=== PATIENT | female | born 1945 | race Caucasian/White ===

== ENCOUNTER → 2017-10-11 | Outpatient (CLI) | payer BC, MEDICARE, OTHER ==
[~2017-10-11] MED LIST: ASCO-188 PO; ATOR10TA65 PO; AZO YEAST PO; CALC-83; CHOL100058 PO; CLO75 PO; CRAN200C5 PO; CYAN25004; DEN60I SUBQ; DICL100G39 TP; DOCU-202 PO; DOXY150T6 PO; ESTR0.62 PO; ESTR2TAB PO; EZET1TAB53 PO; GLUC-255 PO; IBAN150T6 PO; IBAN2.5T2 PO; LACT1CAP74 PO; LISI-357 PO; LOSA25TA50 PO; METH1TAB46 PO; METH1TAB58 PO; METO-1 PO; MULT1CAP59 PO; OMEG-96 PO; POLY17PO25 PO; PRAM0.2524 PO; PRAS25CA7 PO; SIM10 PO; TRI05T TP; VITA-131 PO; ZINC50TA43 PO
== END ==
LOC: LAB 12:13
PROVIDERS: ATTEND Internal Medicine Endocrinology, Diabetes & Metabolism
DX: E05.90 Thyrotoxicosis, unspecified without thyrotoxic crisis or storm (principal)
CPT/HCPCS: 36415; 84439; 84443; 84481

== ENCOUNTER → 2017-10-22 | Outpatient (CLI) | payer BC, MEDICARE, OTHER ==
[~2017-10-22] MED LIST changes: +DENOSUMAB 60 MG/1 ML SYR SUBQ ONE
[2017-10-22 12:59] VITALS: BP 148/70
== END ==
LOC: SPU 08:08
PROVIDERS: ATTEND Nurse Practitioner Family
DX: M81.0 Age-related osteoporosis without current pathological fracture (principal)
CPT/HCPCS: 96372; J0897

== ENCOUNTER → 2017-10-26 | Outpatient (CLI) | payer BC, MEDICARE, OTHER ==
[~2017-10-26] MED LIST changes: -DENOSUMAB 60 MG/1 ML SYR SUBQ ONE
[2017-10-26 09:43] LABS: PLATELET COUNT, AUTOMATED 193 K/uL (150-450)
== END ==
LOC: LAB 09:01
PROVIDERS: ATTEND Nurse Practitioner Family
DX: I70.0 Atherosclerosis of aorta (principal); E55.9 Vitamin D deficiency, unspecified; D51.0 Vitamin B12 deficiency anemia due to intrinsic factor deficiency; R76.8 Other specified abnormal immunological findings in serum
CPT/HCPCS: 36415; 82040; 82247; 82306; 82310; 82374; 82435; 82465; 82565; 82607; 82947; 83718; 84075; 84132; 84155; 84295; 84450; 84460; 84478; 84520; 85025; 86803

== ENCOUNTER → 2017-11-01 | Outpatient (CLI) | payer BC, MEDICARE, OTHER ==
--- NOTE | 2017-11-01 13:30 | RADIOLOGY IMAGING REPORT ---
[place] [facility] [place] NAME: Tita Loera : 1945 MR: [id number] V: [id number] EXAM DATE: ORDERING PHYSICIAN: DAISHA RON TECHNOLOGIST: Location: [facility] Patient: Tita Loera : 1945 Visit/Account:[id number] Date of Sevice: 11/01/2017 BONE MINERAL DENSITY Additional Pertinent history: Osteoporosis screening COMPARISON STUDIES: 07/03/2015 FINDINGS: LUMBAR SPINE: The bone mineral density (BMD) measured from L1-L4 correlates with a Z-score of 1.4 and a T-score of -0.6 which is normal bone mineral density as defined by the World Health Organization. The correspond ing risk of fracture in the lumbar spine is increased 1-2 times compared with a young adult reference population. This value has increased by 11.2% since the prior study. More than 5% change is consider ed significant. HIP: Bone mineral density (BMD) measured in the left femoral neck correlates with a Z-score of 0.4 and a T-score of -1.5 which is osteopenia as defined by the World Health Organization. The corresponding ri sk of fracture in the hip is increased 3 times compared with a young adult reference population. Tota l hip value has increased by 4.7% since the prior study. More than 5% change is considered significan t. Total hip bone mineral density is normal with T score = -0.9. Bone mineral density (BMD) measured in the left femoral neck region measures 0.83 g/cm2. IMPRESSION: 1. Lumbar spine: Normal bone mineral density. Significant increase in bone mineral density. 2. Left hip: Osteopenia at the femoral neck. Total hip bone mineral density is normal.. Total hip va lue has shown no significant change. Left femoral neck: bone mineral density is 0.83 g/cm2 FRAX WHO Fracture Risk Assessment Tool link: http://www.cary.ac.uk/FRAX/index.jsp The next DEXA scan of this patient should include the following sites: L1 - L4 and left hip PLEASE NOTE: 1. The World Health Organization defines low BMD as follows: T-score Normal > -1 Osteopenia -1 to -2.5 Osteoporosis < -2.5 without fractures Established osteoporosis < -2.5 with fractures 2. In general, you may wish to consider: Diagnosis Treatment Follow-up DEXA Normal BMD Prevention 2-3 years Osteopenia Prevention/therapy 1-2 years Osteoporosis Therapy Yearly 3. Fracture risk estimated from the T-score is more accurate for vertebral fractures (often spontaneo us) than for hip fractures. Report Dictated By: Rashid Dangelo MD at 11/01/2017 1:24 PM Report E-Signed By: Rashid Dangelo MD at 11/01/2017 1:27 PM SHANICEN:TORRES
== END ==
LOC: RAD 07:21
PROVIDERS: ATTEND Nurse Practitioner Family
DX: M85.88 Other specified disorders of bone density and structure, other site (principal)
CPT/HCPCS: 77080

== ENCOUNTER → 2017-11-11 | Outpatient (CLI) | payer BC, MEDICARE, OTHER | LOC: LAB 11:15 | PROVIDERS: ATTEND Internal Medicine Endocrinology, Diabetes & Metabolism | DX: E05.90 Thyrotoxicosis, unspecified without thyrotoxic crisis or storm (principal) | CPT/HCPCS: 36415; 84439; 84443; 84481 ==

== ENCOUNTER → 2017-12-13 | Outpatient (REF) | payer BC, MEDICARE, OTHER | LOC: ZZSENDIN 08:25 | PROVIDERS: ATTEND Urology | DX: N39.0 Urinary tract infection, site not specified (principal) | CPT/HCPCS: 81001; 87088 ==

== ENCOUNTER → 2017-12-24 | Outpatient (CLI) | payer BC, MEDICARE, OTHER ==
--- NOTE | 2017-12-24 14:01 | RADIOLOGY IMAGING REPORT ---
FACILITY: [facility] PATIENT NAME: JUDIT MALCOLM : [id number] MR: [id number] V: [id number] EXAM DATE: ORDERING PHYSICIAN: DAISHA RON TECHNOLOGIST: Lindy Purdy PROCEDURE:BILATERAL DIGITAL SCREENING MAMMOGRAM WITH CAD ASSISTED INTERPRETATION & 3D TOMOSYNTHESIS COMPARISON:Prior mammograms 12/22/16, 12/07/16, 12/06/15, 12/04/14, 11/29/13, 11/28/12. INDICATIONS:screening FINDINGS: Moderately heterogeneous fibroglandular tissue is seen throughout the breasts. The parenchymal pattern has remained stable allowing for difference in mammographic technique & patient positioning. There is no evidence of malignant appearing mass, malignant appearing calcifications or other secondary sign of malignancy in either breast. DIAGNOSTIC CATEGORY 1--NEGATIVE. RECOMMENDATIONS: ROUTINE MAMMOGRAM AND CLINICAL EVALUATION. IMPRESSION: BIRADS 1: Negative No significant abnormality is seen. Dictated by: Vicenta Hernandez M.D. on 12/24/2017 at 11:57 Transcribed by: YESENIA on 12/24/2017 at 13:04 Approved by: Vicenta Hernandez M.D. on 12/24/2017 at 14:00 [facility]
== END ==
LOC: MAMO 09:57
PROVIDERS: ATTEND Nurse Practitioner Family
DX: Z12.31 Encounter for screening mammogram for malignant neoplasm of breast (principal)
CPT/HCPCS: 77063; 77067

== ENCOUNTER → 2017-12-30 | Outpatient (CLI) | payer BC, MEDICARE, OTHER | LOC: LAB 08:50 | PROVIDERS: ATTEND Internal Medicine Endocrinology, Diabetes & Metabolism | DX: E05.20 Thyrotoxicosis with toxic multinodular goiter without thyrotoxic crisis or storm (principal); E05.90 Thyrotoxicosis, unspecified without thyrotoxic crisis or storm | CPT/HCPCS: 36415; 84439; 84443; 84481 ==

== ENCOUNTER → 2018-01-10 | Outpatient (CLI) | payer BC, MEDICARE, OTHER | LOC: LAB 07:12 | PROVIDERS: ATTEND Internal Medicine Endocrinology, Diabetes & Metabolism | DX: R53.82 Chronic fatigue, unspecified (principal) | CPT/HCPCS: 36415; 82533 ==

== ENCOUNTER → 2018-01-13 | Outpatient (CLI) | payer BC, MEDICARE, OTHER ==
[2018-01-13 10:21] LABS: PLATELET COUNT, AUTOMATED 194 K/uL (150-450)
== END ==
LOC: LAB 10:06
PROVIDERS: ATTEND Nurse Practitioner Family
DX: E87.1 Hypo-osmolality and hyponatremia (principal); R53.81 Other malaise
CPT/HCPCS: 36415; 82040; 82247; 82310; 82374; 82435; 82565; 82947; 84075; 84132; 84155; 84295; 84450; 84460; 84520; 85025

== ENCOUNTER → 2018-04-13 | Outpatient (CLI) | payer BC, MEDICARE, OTHER | LOC: RESP 19:57 | PROVIDERS: ATTEND Nurse Practitioner Family | DX: G47.33 Obstructive sleep apnea (adult) (pediatric) (principal); G47.36 Sleep related hypoventilation in conditions classified elsewhere ==

== ENCOUNTER → 2018-04-25 | Outpatient (CLI) | payer BC, MEDICARE, OTHER ==
[~2018-04-25] MED LIST changes: +DENOSUMAB 60 MG/1 ML SYR SUBQ ONE
== END ==
LOC: SPU 09:09
PROVIDERS: ATTEND Nurse Practitioner Family
DX: Z02.9 Encounter for administrative examinations, unspecified (principal)

== ENCOUNTER → 2018-04-26 | Outpatient (CLI) | payer BC, MEDICARE, OTHER ==
[2018-04-26 09:19] VITALS: BP 136/71
== END ==
LOC: SPU 08:02
PROVIDERS: ATTEND Nurse Practitioner Family
DX: M81.0 Age-related osteoporosis without current pathological fracture (principal)
CPT/HCPCS: 96372; J0897

== ENCOUNTER → 2018-05-18 | Outpatient (CLI) | payer BC, MEDICARE, OTHER ==
[~2018-05-18] MED LIST changes: -DENOSUMAB 60 MG/1 ML SYR SUBQ ONE
[2018-05-18 09:30] LABS: PLATELET COUNT, AUTOMATED 231 K/uL (150-450)
[2018-05-18 10:49] LABS: LDL CHOLESTEROL 88 mg/dl
== END ==
LOC: LAB 09:05
PROVIDERS: ATTEND Nurse Practitioner Family
DX: E03.9 Hypothyroidism, unspecified (principal); I10 Essential (primary) hypertension; E78.00 Pure hypercholesterolemia, unspecified; R53.81 Other malaise; G47.33 Obstructive sleep apnea (adult) (pediatric); E55.9 Vitamin D deficiency, unspecified; D51.0 Vitamin B12 deficiency anemia due to intrinsic factor deficiency
CPT/HCPCS: 36415; 82040; 82247; 82306; 82310; 82374; 82435; 82465; 82565; 82607; 82947; 83718; 84075; 84132; 84155; 84295; 84436; 84443; 84450; 84460; 84478; 84479; 84520; 85025; 85651; 86140

== ENCOUNTER → 2018-05-24 | Outpatient (CLI) | payer BC, MEDICARE, OTHER ==
--- NOTE | 2018-05-24 12:24 | EKG ---
FACILITY: [facility] PATIENT NAME: JUDIT MALCOLM : [id number] MR: [id number] V: [id number] EXAM DATE: ORDERING PHYSICIAN: DAISHA RON TECHNOLOGIST: ANDRE Test Reason : BETY HISTORY Blood Pressure : / mmHG Vent. Rate : 053 BPM Atrial Rate : 053 BPM P-R Int : 188 ms QRS Dur : 086 ms QT Int : 470 ms P-R-T Axes : 025 014 031 degrees QTc Int : 441 ms Sinus bradycardia Otherwise normal ECG No previous ECGs available Confirmed by Timmy Bentley ([id number]) on 05/24/2018 4:55:14 PM Referred By: PRIETO Confirmed By:Timmy Gresham
== END ==
LOC: RESP 12:00
PROVIDERS: ATTEND Nurse Practitioner Family
DX: R00.1 Bradycardia, unspecified (principal)
CPT/HCPCS: 93005

== ENCOUNTER → 2018-07-18 | Outpatient (CLI) | payer BC, MEDICARE, OTHER ==
[~2018-07-18] MED LIST changes: -LOSA25TA50 PO; +LOSA25TA52 PO
[2018-07-18 10:06] LABS: PLATELET COUNT, AUTOMATED 191 K/uL (150-450)
== END ==
LOC: LAB 09:42
PROVIDERS: ATTEND Nurse Practitioner Family
DX: R07.89 Other chest pain (principal); E03.8 Other specified hypothyroidism; E78.00 Pure hypercholesterolemia, unspecified; R53.81 Other malaise; R94.5 Abnormal results of liver function studies; D51.0 Vitamin B12 deficiency anemia due to intrinsic factor deficiency; E04.1 Nontoxic single thyroid nodule
CPT/HCPCS: 36415; 82040; 82247; 82310; 82374; 82435; 82565; 82746; 82947; 84075; 84132; 84155; 84295; 84443; 84450; 84460; 84520; 85025

== ENCOUNTER → 2018-10-04 | Outpatient (CLI) | payer BC, MEDICARE, OTHER ==
[~2018-10-04] MED LIST changes: -LOSA25TA52 PO; +LOSA25TA57 PO
== END ==
LOC: LAB 16:03
PROVIDERS: ATTEND Nurse Practitioner Family
DX: N95.1 Menopausal and female climacteric states (principal); E89.41 Symptomatic postprocedural ovarian failure; M81.0 Age-related osteoporosis without current pathological fracture; N30.20 Other chronic cystitis without hematuria
CPT/HCPCS: 36415; 82670; 83001; 84403

== ENCOUNTER 2018-10-25 19:21 | Inpatient (IN) | payer BC, MEDICARE, OTHER ==
[~2018-10-25 19:21] MED LIST changes: -OMEP-137 PO; -PANT40TA65 PO; -SUCR1TAB85 PO
--- NOTE | 2018-10-25 19:32 | ER Report ---
History and Physical Time Seen By MD: 19:32 HPI/ROS CHIEF COMPLAINT: Anemia, black stool HISTORY OF PRESENT ILLNESS: 73-year-old female patient presents to emergency room with complaint of anemia and black stool. Patient states that she's been having black stool for the last 3 days. She did go to see her primary care provider today who collected a stool sample. She is in that event to [facility]. They did send her over to the hospital to get a CBC done. Patient had critical results of which were sent to Dr. Sy, who contacted the patient and recommended she come in here for evaluation. Patient states that she's not having any pain, she denies having any nausea or vomiting. Patient states that she typically has one bowel movement today, however today she has had more. REVIEW OF SYSTEMS: Respiratory: No cough, no dyspnea. Cardiovascular: No chest pain, no palpitations. Gastrointestinal: As noted above. Musculoskeletal: No back pain. Allergies: Coded Allergies: clonidine (Verified Allergy, Mild, STROBE LIGHTS, 03/18/11) Home Meds Reported Medications Sucralfate (CARAFATE) 1 Gm Tablet, 1 GM PO TID 10/25/18 Omeprazole (OMEPRAZOLE) 20 Mg Tablet.dr, 40 MG PO QDAY, TAB 10/25/18 Denosumab (PROLIA) 60 Mg/1 Ml Injs, 60 MG SUBQ [id number] 10/30/15 Calcium Citrate/Vitamin D3 (Calcium Citrate +Vit D3 Tablet) 200 Mg Calcium-250 Unit Tablet 10/30/15 Zinc Gluconate (ZINC) 50 Mg Tablet, 50 MG PO QDAY 08/02/15 Cranberry Extract (CRANBERRY) 200 Mg Capsule, 200 MG PO BID, CAPSULE 08/02/15 Cholecalciferol (Vitamin D3) (VITAMIN D) 1,000 Unit Capsule, 1000 UNIT PO QDAY, CAPSULE 08/02/15 Ascorbic Acid (VITAMIN C) 500 Mg Tab.chew, 500 MG PO QDAY, TAB.CHEW 08/02/15 Cyanocobalamin (Vitamin B-12) (Vitamin B12) Unknown Strength Tablet 08/02/15 [place]-3 Fatty Acids/Fish Oil (OMEGA 3 1,000 MG SOFTGEL) 1 Each Capsule, 1 EACH PO QDAY, CAPSULE 08/02/15 Polyethylene Glycol 3350 (MIRALAX) 17 Gm Powd.pack, 17 GM PO QDAY 08/02/15 Docusate Sodium (DOCUSATE SODIUM) 100 Mg Capsule, 2 TAB PO BID, CAPSULE 08/02/15 Diclofenac Sodium 1% Gel (VOLTAREN 1% GEL) 100 Gm Gel..gram., 1 TIARA TP PRN 08/02/15 Triamcinolone Acet 0.5% (TRIAMCINOLONE ACETONIDE 0.5%) 15 Gm Cr, 15 GM TP, TUBE 08/02/15 Methenamine Hippurate (METHENAMINE HIPPURATE) 1 Gm Tablet, 1 GM PO BID 08/02/15 Atorvastatin Calcium (ATORVASTATIN CALCIUM) 10 Mg Tablet, 1 TAB PO QDAY, TAB 08/02/15 Losartan Potassium (LOSARTAN POTASSIUM) 25 Mg Tablet, 25 MG PO QDAY 08/02/15 Multivitamins (Multivitamin) 1 Each Capsule, 1 EACH PO QDAY, 0 Refills 03/18/11 Pramipexole Di-Hcl (Mirapex) 0.25 Mg Tablet, 1.5 MG PO QDAY, 0 Refills 03/18/11 Clopidogrel Bisulfate (Plavix) 75 Mg Tab, 75 MG PO QDAY, 0 Refills 03/18/11 Metoprolol Tartrate (Lopressor) 50 Mg Tablet, 25 MG PO QDAY, 0 Refills 03/18/11 Discontinued Reported Medications Glucosamine/Chondroitin Sulf A (GLUCOSAMINE CHONDROITIN CAP) 1 Each Capsule, 1 EACH PO QDAY, CAPSULE 08/02/15 Prasterone (Dhea) (DHEA) 25 Mg Capsule, 25 MG PO QDAY, CAPSULE 08/02/15 [Azo Yeast] No Conflict Check, 1 TAB PO QDAY 08/02/15 Lactobacillus Rhamnosus Gg (CULTURELLE) 1 Each Capsule, 1 EACH PO QDAY, CAPSULE 08/02/15 Estrogens, Conjugated 0.625 Mg Tab (PREMARIN 0.625 MG TAB) 0.625 Mg Tablet, 0.625 MG PO QDAY 08/02/15 Past Medical/Surgical History Patient has a past medical history of migraines, aneurysm with dissection, hypertension, hyperlipidemia, constipation, frequent UTI, osteopenia. Patient has surgical history of aortic aneurysm repair, hysterectomy, tonsillectomy, surgery for a mediastinitis. Reviewed Nurses Notes: Yes Hx Smoking: No Smoking Status: Never Smoker Hx Substance Use Disorder: No Hx Alcohol Use: No Constitutional Vital Sign - Last 24 Hours 10/25/18 10/25/18 10/25/18 2/5/19 19:33 19:33 19:51 19:56 Temp 99.1 Pulse 92 88 Resp 16 B/P (MAP) 126/60 126/60 (82) 101/53 (69) Pulse Ox 94 96 10/25/18 10/25/18 10/25/18 10/25/18 20:00 20:21 20:30 20:51 Pulse 78 76 B/P (MAP) 97/50 (66) 114/62 (79) Pulse Ox 87 100 10/25/18 10/25/18 21:00 21:05 Pulse 81 B/P (MAP) 127/60 (82) Pulse Ox 100 Physical Exam General Appearance: The patient is alert, has no immediate need for airway protection and no current signs of toxicity. Respiratory: Chest is non tender, lungs are clear to auscultation. Cardiac: regular rate and rhythm Gastrointestinal: Abdomen is soft and non tender, no masses, bowel sounds normal. Musculoskeletal: Neck: Neck is supple and non tender. Extremities have full range of motion and are non tender. Skin: No rashes or lesions. DIFFERENTIAL DIAGNOSIS: After history and physical exam differential diagnosis was considered for GI bleed, anemia, gastritis. Medical Decision Making Data Points Result Diagram: 10/25/181950 Laboratory Hematology Test 10/25/18 19:51 Red Blood Count 2.24 M/uL (4.17-5.56) Mean Corpuscular Volume 104.7 fL (80.0-96.0) Mean Corpuscular Hemoglobin 35.8 pg (26.0-33.0) Mean Corpuscular Hemoglobin Concent 34.2 g/dL (32.0-36.0) Red Cell Distribution Width 13.0 % (11.5-14.5) Mean Platelet Volume 8.3 fL (7.2-11.1) Neutrophils (%) (Auto) 64.1 % (39.4-72.5) Lymphocytes (%) (Auto) 28.5 % (17.6-49.6) Monocytes (%) (Auto) 5.4 % (4.1-12.4) Eosinophils (%) (Auto) 1.5 % (0.4-6.7) Basophils (%) (Auto) 0.5 % (0.3-1.4) Nucleated RBC Relative Count (auto) 0.0 /100WBC Neutrophils # (Auto) 3.5 K/uL (2.0-7.4) Lymphocytes # (Auto) 1.5 K/uL (1.3-3.6) Monocytes # (Auto) 0.3 K/uL (0.3-1.0) Eosinophils # (Auto) 0.1 K/uL (0.0-0.5) Basophils # (Auto) 0.0 K/uL (0.0-0.1) Nucleated RBC Absolute Count (auto) 0.00 K/uL Prothrombin Time 13.3 seconds (12.0-14.4) Prothromb Time International Ratio 1.01 Activated Partial Thromboplast Time 29 seconds (23-35) C-Reactive Protein 0.6 mg/dl (<1.0) Chemistry Test 10/25/18 19:51 White Blood Count 5.4 k/uL (4.5-11.0) Red Blood Count 2.24 M/uL (4.17-5.56) Hemoglobin 8.0 g/dL (12.0-16.0) Hematocrit 23.5 % (34.0-47.0) Mean Corpuscular Volume 104.7 fL (80.0-96.0) Mean Corpuscular Hemoglobin 35.8 pg (26.0-33.0) Mean Corpuscular Hemoglobin Concent 34.2 g/dL (32.0-36.0) Red Cell Distribution Width 13.0 % (11.5-14.5) Platelet Count 181 K/uL (150-450) Mean Platelet Volume 8.3 fL (7.2-11.1) Neutrophils (%) (Auto) 64.1 % (39.4-72.5) Lymphocytes (%) (Auto) 28.5 % (17.6-49.6) Monocytes (%) (Auto) 5.4 % (4.1-12.4) Eosinophils (%) (Auto) 1.5 % (0.4-6.7) Basophils (%) (Auto) 0.5 % (0.3-1.4) Nucleated RBC Relative Count (auto) 0.0 /100WBC Neutrophils # (Auto) 3.5 K/uL (2.0-7.4) Lymphocytes # (Auto) 1.5 K/uL (1.3-3.6) Monocytes # (Auto) 0.3 K/uL (0.3-1.0) Eosinophils # (Auto) 0.1 K/uL (0.0-0.5) Basophils # (Auto) 0.0 K/uL (0.0-0.1) Nucleated RBC Absolute Count (auto) 0.00 K/uL Prothrombin Time 13.3 seconds (12.0-14.4) Prothromb Time International Ratio 1.01 Activated Partial Thromboplast Time 29 seconds (23-35) C-Reactive Protein 0.6 mg/dl (<1.0) Coagulation Test 10/25/18 19:51 Prothrombin Time 13.3 seconds Prothromb Time International Ratio 1.01 Activated Partial Thromboplast Time 29 seconds ED Course/Re-evaluation ED Course Patient was admitted to an exam room, history and physical were obtained. Differential diagnoses were considered. On examination lungs are clear, heart was regular, abdomen soft nontender. A repeat CBC, PT, PTT were done. The PT and PTT were unremarkable. However the repeat CBC showed that her hemoglobin had dropped from 8.5-8. Her hematocrit had dropped from 24.8-23.5. At that time I did call and discuss the case with Dr. Sarah, general surgeon, who agreed to admit the patient for a GI bleed. I discussed with him that I was concerned at how rapidly her H&H had dropped. He was in agreement and recommended that she be put on a clear liquid diet with nothing by mouth after midnight that she's given Carafate diet and started on a Protonix drip. I discussed this with the patient and her who verbalized understanding and agreement with plan. Decision to Disposition Date: Oct 25, 2018 Decision to Disposition Time: 21:00 Depart Departure Latest Vital Signs Vital Signs Date Time Temp Pulse Resp B/P (MAP) Pulse Ox O2 Delivery O2 Flow Rate FiO2 10/25/18 21:05 81 100 10/25/18 21:00 127/60 (82) 10/25/18 19:33 99.1 16 Impression: Primary Impression: GI bleed Additional Impression: Anemia Condition: Condition Unchanged Disposition: Admitted from ER Referrals: DAISHA RON (PCP) Problem Qualifiers Primary Impression: GI bleed GI bleed type/associated pathology: unspecified peptic ulcer Qualified Codes: K27.4 - Chronic or unspecified peptic ulcer, site unspecified, with hemorrhage Additional Impression: Anemia Anemia type: unspecified type Qualified Codes: D64.9 - Anemia, unspecified OZIEL KOEHLER Oct 25, 2018 19:32
[2018-10-25] MEDS ORDERED: NS(*) 0.9% 1000 ML BAG 1,000 ML IV ONE (19:43)
[2018-10-25 20:09] LABS: PLATELET COUNT, AUTOMATED 181 K/uL (150-450)
[2018-10-25] MEDS ORDERED: OMEP-137 PO (20:10)
[2018-10-25] MEDS ORDERED: SUCR1TAB85 PO (20:10)
[2018-10-25 20:15] LABS: INR 1.01
[2018-10-25] MEDS ORDERED: PANTOPRAZOLE SOD(*)40 MG VIAL 80 MG in NS(*) 0.9% 100 ML BAG 100 ML IVPB ONE ×2 (20:45→22:30)
[2018-10-25] MEDS ORDERED: SUCRALFATE 1 GM TAB PO ONE (20:45)
[2018-10-25 21:36] VITALS: BP 156/70
[2018-10-25] MEDS ORDERED: PRAMIPEXOLE DIHYDROCHL 0.25 MG PO SCH (22:20)
[2018-10-25] MEDS ORDERED: NS(*) 0.9% 1000 ML BAG 1,000 ML IV PRN (22:30)
[2018-10-25] MEDS: PANTOPRAZOLE SOD IV SCH (22:56)
[2018-10-25] MEDS: NS IV SCH (22:56)
[2018-10-26] VITALS (11 sets, daily range): BP systolic 106–127; BP diastolic 56–65
[2018-10-26 06:36] LABS: PLATELET COUNT, AUTOMATED 158 K/uL (150-450)
[2018-10-26] MEDS ORDERED: NS(*) 0.9% 1000 ML BAG 1,000 ML IV PRN (07:09)
--- NOTE | 2018-10-26 07:15 | Gen Surgery History & Physical ---
History of Present Illness Chief Complaint dark stool, fatigue History of Present Illness 73 yo f with 4 days of dark stool. she is easily fatigued. no vomiting. h/o aortic aneurysm repair in 2009, on plavix. takes nsaids daily for right shoulder pain. no h/o pud. had colonoscopy 2015 and "growth" in rectum was removed. no egd in the past. History Home Meds Reported Medications Sucralfate (CARAFATE) 1 Gm Tablet, 1 GM PO TID 10/25/18 Omeprazole (OMEPRAZOLE) 20 Mg Tablet.dr, 40 MG PO QDAY, TAB 10/25/18 Denosumab (PROLIA) 60 Mg/1 Ml Injs, 60 MG SUBQ [id number] 10/30/15 Calcium Citrate/Vitamin D3 (Calcium Citrate +Vit D3 Tablet) 200 Mg Calcium-250 Unit Tablet 10/30/15 Zinc Gluconate (ZINC) 50 Mg Tablet, 50 MG PO QDAY 08/02/15 Cranberry Extract (CRANBERRY) 200 Mg Capsule, 200 MG PO BID, CAPSULE 08/02/15 Cholecalciferol (Vitamin D3) (VITAMIN D) 1,000 Unit Capsule, 1000 UNIT PO QDAY, CAPSULE 08/02/15 Ascorbic Acid (VITAMIN C) 500 Mg Tab.chew, 500 MG PO QDAY, TAB.CHEW 08/02/15 Cyanocobalamin (Vitamin B-12) (Vitamin B12) Unknown Strength Tablet 08/02/15 [place]-3 Fatty Acids/Fish Oil (OMEGA 3 1,000 MG SOFTGEL) 1 Each Capsule, 1 EACH PO QDAY, CAPSULE 08/02/15 Polyethylene Glycol 3350 (MIRALAX) 17 Gm Powd.pack, 17 GM PO QDAY 08/02/15 Docusate Sodium (DOCUSATE SODIUM) 100 Mg Capsule, 2 TAB PO BID, CAPSULE 08/02/15 Diclofenac Sodium 1% Gel (VOLTAREN 1% GEL) 100 Gm Gel..gram., 1 TIARA TP PRN 08/02/15 Triamcinolone Acet 0.5% (TRIAMCINOLONE ACETONIDE 0.5%) 15 Gm Cr, 15 GM TP, TUBE 08/02/15 Methenamine Hippurate (METHENAMINE HIPPURATE) 1 Gm Tablet, 1 GM PO BID 08/02/15 Atorvastatin Calcium (ATORVASTATIN CALCIUM) 10 Mg Tablet, 1 TAB PO QDAY, TAB 08/02/15 Losartan Potassium (LOSARTAN POTASSIUM) 25 Mg Tablet, 25 MG PO QDAY 08/02/15 Multivitamins (Multivitamin) 1 Each Capsule, 1 EACH PO QDAY, 0 Refills 03/18/11 Pramipexole Di-Hcl (Mirapex) 0.25 Mg Tablet, 1.5 MG PO QDAY, 0 Refills 03/18/11 Clopidogrel Bisulfate (Plavix) 75 Mg Tab, 75 MG PO QDAY, 0 Refills 03/18/11 Metoprolol Tartrate (Lopressor) 50 Mg Tablet, 25 MG PO QDAY, 0 Refills 03/18/11 Discontinued Reported Medications Glucosamine/Chondroitin Sulf A (GLUCOSAMINE CHONDROITIN CAP) 1 Each Capsule, 1 EACH PO QDAY, CAPSULE 08/02/15 Prasterone (Dhea) (DHEA) 25 Mg Capsule, 25 MG PO QDAY, CAPSULE 08/02/15 [Azo Yeast] No Conflict Check, 1 TAB PO QDAY 08/02/15 Lactobacillus Rhamnosus Gg (CULTURELLE) 1 Each Capsule, 1 EACH PO QDAY, CAPSULE 08/02/15 Estrogens, Conjugated 0.625 Mg Tab (PREMARIN 0.625 MG TAB) 0.625 Mg Tablet, 0.625 MG PO QDAY 08/02/15 Allergies: Coded Allergies: clonidine (Verified Allergy, Mild, STROBE LIGHTS, 03/18/11) Patient History: FH: HTN (hypertension) FH: Parkinson's disease FH: heart disease FH: kidney failure FH: restless leg syndrome High cholesterol Review of Systems Constitutional: Other (10 pt ros neg except per hpi) Exam General Appearance: Alert, Awake, No Acute Distress Neuro: No Gross deficits Eyes: Other (per, eomi) ENT: Moist Mucous Membranes Neck: No Masses Cardiovascular: Other (reg rate) Respiratory: No Respiratory Distress GI: Abd Soft and Non-Tender Extremities: Other (hands swelling mildly from fluid) Integumentary: Skin Intact without Lesion / Mass Psych: Alert & Oriented X3, Appropriate Mood & Affect Medical Decision Making Data Points Result Diagram: 10/26/18 0614 Assessment and Plan Problems: (1) GI bleed Status: Acute Assessment & Plan: 10/26/15: transfuse 2 units, ppi, carafate, hold plavix, egd today Venous Thromboembolism Antithrombotics Is Pt On Any Antithrombotics?: No Problem Qualifiers (1) GI bleed: GI bleed type/associated pathology: unspecified peptic ulcer Qualified Codes: K27.4 - Chronic or unspecified peptic ulcer, site unspecified, with hemorrhage JOS EMIGUEL SHAW Oct 26, 2018 07:15
[2018-10-26] MEDS ORDERED: NS(*) 0.9% 250 ML BAG 250 ML ONE ×2 (07:50→13:16)
--- NOTE | 2018-10-26 10:00 | NUR ---
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
[2018-10-26] MEDS ORDERED: NORMOSOL R SOLN(*) 1000 ML BAG 1,000 ML IV ONE (10:11)
[2018-10-26] MEDS ORDERED: PROPOFOL EMUL(*) 10MG/ML 20 ML 20 ML ONE (10:13)
--- NOTE | 2018-10-26 10:55 | NUR ---
1010- PT. TRANSFERRED FROM MED/SURG TO PREOP VIA BED. SAFETY MAINTAINED. VSS. ASSESSMENT WNL. NO CONCERN. BLOOD TRANSFUSING. IVs PATENT. 1030- RN IN TO CHECK ON PT. NO CONCERNS. 1050- DR. WRAY INFORMED PT. DID NOT TAKE METOPROLOL. STATES DOES NOT NEED TO HAVE PRIOR TO OR. 1055- RN INTO ROOM TO CHECK ON PT. NO CONCERNS. TRANSFUSION RUNNING W/O ISSUES.
--- NOTE | 2018-10-26 12:05 | NUR ---
PT. SENT TO OR WITH TRANSFUSION INFUSING.
[2018-10-26] MEDS: NS IV SCH (14:48)
[2018-10-26] MEDS: PANTOPRAZOLE SOD IV SCH (14:48)
[2018-10-26] MEDS ORDERED: PANT40TA65 PO (17:25)
[2018-10-26] MEDS ORDERED: SUCR1TAB85 PO (17:26)
[2018-10-26] MEDS ORDERED: PRAMIPEXOLE DIHYDROCHL 0.25 MG PO SCH (21:00)
== END 2018-10-26 19:25 | disposition home or self-care (01) | DRG 384 ==
LOC: ER 19:51 → MED 21:05
PROVIDERS: ADMIT Surgery; ATTEND Surgery
PROC: 0DJ08ZZ Inspection of Upper Intestinal Tract, Via Natural or Artificial Opening Endoscopic (ICD-10-PCS; principal; 2018-10-25)
PROC: 30233N1 Transfusion of Nonautologous Red Blood Cells into Peripheral Vein, Percutaneous Approach (ICD-10-PCS; 2018-10-26)
DX: K25.9 Gastric ulcer, unspecified as acute or chronic, without hemorrhage or perforation (principal); K92.1 Melena; K44.9 Diaphragmatic hernia without obstruction or gangrene; I10 Essential (primary) hypertension; K59.09 Other constipation; K29.70 Gastritis, unspecified, without bleeding; E78.5 Hyperlipidemia, unspecified; D64.9 Anemia, unspecified; G25.81 Restless legs syndrome; M85.80 Other specified disorders of bone density and structure, unspecified site; Z90.710 Acquired absence of both cervix and uterus; Z88.8 Allergy status to other drugs, medicaments and biological substances; Z95.1 Presence of aortocoronary bypass graft
CPT/HCPCS: 36415; 36430; 82274; 85007; 85018; 85025; 85027; 85610; 85730; 86140; 86850; 86900; 86901; 86920; 96361; 96365; 99284; C9113; J2704; J7030; J7050; P9016

== ENCOUNTER → 2018-10-25 | Outpatient (CLI) | payer BC, MEDICARE, OTHER ==
[~2018-10-25] MED LIST changes: +OMEP-137 PO; +PANT40TA65 PO; +SUCR1TAB85 PO
== END ==
LOC: LAB 16:48
PROVIDERS: ATTEND Nurse Practitioner Family
DX: K92.1 Melena (principal)
CPT/HCPCS: 36415; 82040; 82247; 82310; 82374; 82435; 82565; 82947; 84075; 84132; 84155; 84295; 84450; 84460; 84520; 85027; 86677

== ENCOUNTER → 2018-10-28 | Outpatient (CLI) | payer BC, MEDICARE, OTHER ==
[~2018-10-28] MED LIST changes: +OMEP-137 PO; +PANT40TA65 PO; +SUCR1TAB85 PO
[2018-10-28 12:10] LABS: PLATELET COUNT, AUTOMATED 186 K/uL (150-450)
== END ==
LOC: LAB 11:55
PROVIDERS: ATTEND Nurse Practitioner Family
DX: K92.1 Melena (principal); R53.81 Other malaise; R45.1 Restlessness and agitation; E83.42 Hypomagnesemia
CPT/HCPCS: 36415; 82728; 83735; 85025

== ENCOUNTER → 2018-11-01 | Outpatient (CLI) | payer BC, MEDICARE, OTHER ==
[2018-11-01 10:35] LABS: PLATELET COUNT, AUTOMATED 229 K/uL (150-450)
== END ==
LOC: LAB 10:18
PROVIDERS: ATTEND Nurse Practitioner Family
DX: K92.1 Melena (principal); R53.81 Other malaise
CPT/HCPCS: 36415; 82728; 85025

== ENCOUNTER → 2018-11-10 | Outpatient (CLI) | payer BC, MEDICARE, OTHER ==
[2018-11-10 11:46] LABS: PLATELET COUNT, AUTOMATED 282 K/uL (150-450)
== END ==
LOC: LAB 11:08
PROVIDERS: ATTEND Nurse Practitioner Family
DX: K25.3 Acute gastric ulcer without hemorrhage or perforation (principal); D50.0 Iron deficiency anemia secondary to blood loss (chronic); I10 Essential (primary) hypertension; R53.81 Other malaise; G25.81 Restless legs syndrome
CPT/HCPCS: 36415; 82040; 82247; 82310; 82374; 82435; 82565; 82728; 82947; 84075; 84132; 84155; 84295; 84450; 84460; 84520; 85025

== ENCOUNTER 2018-12-23 01:56 | Day surgery (SDC) | payer BC, MEDICARE, OTHER ==
[~2018-12-23] VITALS: Ht 157.5 cm; Wt 57.6 kg
[~2018-12-23 01:56] MED LIST changes: +LEVO50TA PO
[2018-12-23] MEDS ORDERED: PROPOFOL EMUL(*) 10MG/ML 20 ML 20 ML ONE (06:38)
[2018-12-23] MEDS ORDERED: NORMOSOL R SOLN(*) 1000 ML BAG 1,000 ML IV PRN (07:30)
[2018-12-23] MEDS ORDERED: LIDOCAINE/SOD BICARB 8.4% SYR ID ONE (07:30)
[2018-12-23 07:56] VITALS: BP 138/67
[2018-12-23 09:03] VITALS: BP 131/61
--- NOTE | 2018-12-23 09:04 | Short(Outpt) Discharge Summary ---
Discharge Summary Reason for Hosp/Final Diag: (1) GI bleed Status: Acute Hospital Course & Plan: pt presented for egd. she tolerated the procedure well. path pending. she will be discharged home when criteria met. Departure Discharge to: Home Discharge Instructions Home Meds Active Scripts Sucralfate (CARAFATE) 1 Gm Tablet, 1 GM PO Q6H, #120 TAB Prov:JOSE MIGUEL SHAW 10/26/18 Reported Medications Pantoprazole Sodium (PANTOPRAZOLE SODIUM) 40 Mg Tablet.dr, 40 MG PO QDAY, TAB.SR 12/16/18 Levothyroxine Sodium (Euthyrox) 50 Mcg Tablet, 1 TAB PO DAILY 12/16/18 Calcium Citrate/Vitamin D3 (Calcium Citrate +Vit D3 Tablet) 200 Mg Calcium-250 Unit Tablet 10/30/15 Zinc Gluconate (ZINC) 50 Mg Tablet, 50 MG PO QDAY 08/02/15 Cranberry Extract (CRANBERRY) 200 Mg Capsule, 200 MG PO BID, CAPSULE 08/02/15 Cholecalciferol (Vitamin D3) (VITAMIN D) 1,000 Unit Capsule, 1000 UNIT PO QDAY, CAPSULE 08/02/15 Ascorbic Acid (VITAMIN C) 500 Mg Tab.chew, 500 MG PO QDAY, TAB.CHEW 08/02/15 Cyanocobalamin (Vitamin B-12) (Vitamin B12) Unknown Strength Tablet 08/02/15 Polyethylene Glycol 3350 (MIRALAX) 17 Gm Powd.pack, 17 GM PO QDAY 08/02/15 Docusate Sodium (DOCUSATE SODIUM) 100 Mg Capsule, 2 TAB PO BID, CAPSULE 08/02/15 Diclofenac Sodium 1% Gel (VOLTAREN 1% GEL) 100 Gm Gel..gram., 1 TIARA TP PRN 08/02/15 Triamcinolone Acet 0.5% (TRIAMCINOLONE ACETONIDE 0.5%) 15 Gm Cr, 15 GM TP, TUBE 08/02/15 Atorvastatin Calcium (ATORVASTATIN CALCIUM) 10 Mg Tablet, 1 TAB PO QDAY, TAB 08/02/15 Losartan Potassium (LOSARTAN POTASSIUM) 25 Mg Tablet, 25 MG PO QDAY 08/02/15 Pramipexole Di-Hcl (Mirapex) 0.25 Mg Tablet, 1.5 MG PO QDAY, 0 Refills 03/18/11 Metoprolol Tartrate (Lopressor) 50 Mg Tablet, 25 MG PO QDAY, 0 Refills 12.5MG TWICE A DAY 03/18/11 Discontinued Reported Medications Sucralfate (CARAFATE) 1 Gm Tablet, 1 GM PO TID 10/25/18 Omeprazole (OMEPRAZOLE) 20 Mg Tablet.dr, 40 MG PO QDAY, TAB 10/25/18 Denosumab (PROLIA) 60 Mg/1 Ml Injs, 60 MG SUBQ [id number] 10/30/15 [place]-3 Fatty Acids/Fish Oil (OMEGA 3 1,000 MG SOFTGEL) 1 Each Capsule, 1 EACH PO QDAY, CAPSULE 08/02/15 Methenamine Hippurate (METHENAMINE HIPPURATE) 1 Gm Tablet, 1 GM PO BID 08/02/15 Multivitamins (Multivitamin) 1 Each Capsule, 1 EACH PO QDAY, 0 Refills 03/18/11 Discontinued Scripts Pantoprazole Sodium (PANTOPRAZOLE SODIUM) 40 Mg Tablet.dr, 1 TAB PO BID, #90 CAP 1 Refill Prov:JOSE MIGUEL SHAW 10/26/18 Diet: Regular Activity: As Tolerated Special Instructions: we will call you in 10 days with biopsy results. JOSE MIGUEL SHAW Dec 23, 2018 09:04
[2018-12-23 09:30] VITALS: BP 122/67
--- NOTE | 2018-12-23 09:42 | OPERATIVE REPORT 1 ---
EVENT DATE: December 23, 2018 SURGEON: Joby Sarah MD ANESTHESIOLOGIST: Alec Mota MD ANESTHESIA: product scientist: None. PREOPERATIVE DIAGNOSIS Peptic ulcer disease. POSTOPERATIVE DIAGNOSIS Peptic ulcer disease. PROCEDURE PERFORMED Esophagogastroduodenoscopy with biopsies. FLUIDS IV crystalloid ESTIMATED BLOOD LOSS Minimal. SPECIMENS Biopsies from duodenum and antrum. COMPLICATIONS None. INDICATIONS This is a 73-year-old female with a history of upper GI bleed and ulcers found on EGD several weeks ago. She has been taking sucralfate and pantoprazole. Risk and benefits of the procedure were explained. Consent was signed. DESCRIPTION OF PROCEDURE The patient was taken to the GI suite and placed in the supine position. MAC anesthesia was administered per the anesthesia team and the patient was placed in the left lateral position with the bite block. The gastroscope was advanced through the oral pharynx, down the esophagus and into the stomach. It was then advanced into the first portion of the duodenum and up to the second portion of the duodenum. The first portion of the duodenum had mild inflammation, a biopsy was taken. The gastroscope was withdrawn to the antrum. There was mild gastritis in the entire stomach including on retroflexion. The ulcers were healing very well. There was just slight scarring to indicate where the ulcers had been. Biopsies were taken from the antrum for histology and H-pylori. Appropriate hemostasis was assured. The gastroscope was withdrawn into the esophagus. The Z-line was regular. The esophagus was within normal limits. The gastroscope was withdrawn after air was suctioned from the stomach. The patient tolerated the procedure well and there were no complications. [facility]
[2018-12-23 10:00] VITALS: BP 137/69
[2018-12-23 10:07] VITALS: BP 126/71
[2018-12-23 10:08] VITALS: BP 142/77
== END 2018-12-23 10:28 | disposition home or self-care (01) ==
LOC: OR 01:56
PROVIDERS: ATTEND Surgery
DX: K25.9 Gastric ulcer, unspecified as acute or chronic, without hemorrhage or perforation (principal)
CPT/HCPCS: 43239; 87077; 88305; 88344; J2704

== ENCOUNTER → 2019-01-19 | Outpatient (CLI) | payer BC, MEDICARE, OTHER ==
[2019-01-19 10:29] LABS: PLATELET COUNT, AUTOMATED 229 K/uL (150-450)
== END ==
LOC: LAB 09:49
PROVIDERS: ATTEND Nurse Practitioner Family
DX: R53.81 Other malaise (principal); E87.8 Other disorders of electrolyte and fluid balance, not elsewhere classified; D50.9 Iron deficiency anemia, unspecified; E78.00 Pure hypercholesterolemia, unspecified; E83.42 Hypomagnesemia; E53.8 Deficiency of other specified B group vitamins; E55.9 Vitamin D deficiency, unspecified
CPT/HCPCS: 36415; 82040; 82247; 82306; 82310; 82374; 82435; 82465; 82565; 82607; 82728; 82947; 83718; 83735; 84075; 84132; 84155; 84295; 84443; 84450; 84460; 84478; 84520; 85025

== ENCOUNTER → 2019-01-25 | Outpatient (CLI) | payer BC, MEDICARE, OTHER ==
[~2019-01-25] MED LIST changes: +DENOSUMAB 60 MG/1 ML SYR SUBQ ONE
== END ==
LOC: SPU 14:00
PROVIDERS: ATTEND Nurse Practitioner Family
DX: M85.80 Other specified disorders of bone density and structure, unspecified site (principal)
CPT/HCPCS: 96372; A0425; A0429; J0897

== ENCOUNTER → 2019-02-07 | Outpatient (CLI) | payer BC, MEDICARE, OTHER ==
[~2019-02-07] MED LIST changes: -DENOSUMAB 60 MG/1 ML SYR SUBQ ONE
== END ==
LOC: LAB 13:41
PROVIDERS: ATTEND Urology
DX: N39.0 Urinary tract infection, site not specified (principal)
CPT/HCPCS: 87088

== ENCOUNTER → 2019-02-07 | Outpatient (CLI) | payer BC, MEDICARE, OTHER ==
--- NOTE | 2019-02-08 14:37 | RADIOLOGY IMAGING REPORT ---
FAC[place] [facility] [place] NAME: JUDIT MALCOLM : [id number] MR: [id number] V: [id number] EXAM DATE: ORDERING PHYSICIAN: DAISHA RON TECHNOLOGIST: Janet Jules PROCEDURE: BILATERAL DIGITAL SCREENING MAMMOGRAM WITH CAD ASSISTED INTERPRETATION & 3D TOMOSYNTHESIS REASON FOR STUDY: Screening. FAMILY HISTORY OF BREAST CANCER: None. BREAST PROCEDURES/TREATMENTS: None. COMPARISON: Prior mammograms 12/24/17, 12/22/16, 12/07/16, 12/06/15, 12/04/14, 11/29/13. VIEWS OBTAINED: 2D & 3D full field CC & MLO. BREAST DENSITY: The breasts are heterogeneously dense which can obscure small masses. MAMMOGRAM FINDINGS: The parenchymal pattern has remained stable allowing for difference in mammographic technique & patient positioning. IMPRESSION: BIRADS 1: Negative. DIAGNOSTIC CATEGORY 1--NEGATIVE. RECOMMENDATIONS: ROUTINE MAMMOGRAM AND CLINICAL EVALUATION. Dictated by: Vicenta Hernandez M.D. on 02/07/2019 at 16:46 Transcribed by: YESENIA on 02/08/2019 at 8:23 Approved by: Vicenta Hernandez M.D. on 02/08/2019 at 14:36 [facility]
== END ==
LOC: MAMO 00:40
PROVIDERS: ATTEND Nurse Practitioner Family
DX: Z12.31 Encounter for screening mammogram for malignant neoplasm of breast (principal)
CPT/HCPCS: 77063; 77067

== ENCOUNTER → 2019-03-10 | Outpatient (CLI) | payer BC, MEDICARE, OTHER | LOC: LAB 12:06 | PROVIDERS: ATTEND Urology | DX: N39.0 Urinary tract infection, site not specified (principal) | CPT/HCPCS: 81001; 87088 ==